=== PATIENT | male | born 1970 | race Caucasian/White ===

== ENCOUNTER 2017-07-24 12:52 | Emergency (ER) | payer OTHER ==
[~2017-07-24] VITALS: Ht 182.9 cm; Wt 99.8 kg
[~2017-07-24 12:52] MED LIST: CLONAZEPAM 1 MG1 M1 PO; ZOLOFT25 MG PO
[2017-07-24] MEDS ORDERED: ONDANSETRON HCL4 M2 PO (15:41)
[2017-07-24] MEDS ORDERED: KEFLEX500 M1 PO (15:41)
[2017-07-24] MEDS ORDERED: HYDROCODONE-AP1 EAC6 PO (15:41)
[2017-07-24 15:48] VITALS: BP 121/64
== END 2017-07-24 15:49 | disposition home or self-care (01) ==
LOC: ER 12:52
DX: S61.220A Laceration with foreign body of right index finger without damage to nail, initial encounter (principal); W45.8XXA Other foreign body or object entering through skin, initial encounter; Y93.89 Activity, other specified; Y92.89 Other specified places as the place of occurrence of the external cause; Y99.8 Other external cause status

== ENCOUNTER 2017-08-22 11:52 | Inpatient (IN) | payer OTHER ==
[~2017-08-22] VITALS: Ht 185.4 cm; Wt 105.0 kg
[2017-08-22] VITALS (7 sets, daily range): BP systolic 94–121; BP diastolic 55–77
--- NOTE | ~2017-08-22 | PATH ---
[facility] [place] [address] PATHOLOGY RPT PROCEDURE Name: MIKAL RDZ Room #: 211-P [facility] IN M.R.#: [id number] Admission: 08/22/17 Date of : 74 Discharge: 08/25/17 Report #: [id number] Path Case #: [id number] [facility] Accession Number: [id number] . 01 Material submitted: . PART A: BX DUODENUM R/O CELIAC AND UPPER GI CROHN'S PART B: BX GASTRITIS PART C: BX SMALL BOWEL R/O SMALL BOWEL CROHN'S PART D: BX ULCERATIONS AT CECUM TO HEPATIC FLEXURE PART E: BX RANDOM @ PROXIMAL TRANSVERSE COLON TO SPLENIC FLEXURE R/O CROHN' PART F: BX RANDOM AT DESCENDING COLON TO RECTUM R/O CROHN'S . 01 Clinical history: . Pre-OP DX: Anemia Post-OP DX: Ileitis, colitis . 02 Diagnosis: A. Small bowel mucosa, duodenum rule out celiac and upper GI Crohn's, endoscopic biopsy: - Mild active duodenitis. - Negative for granulomata. - Negative for villous blunting. . B. Gastric mucosa, gastritis, endoscopic biopsy: - Mild reactive gastropathy. - Negative for intestinal metaplasia or atrophy. - Negative for Helicobacter pylori (properly controlled immunohistochemical stain performed). . C. Small bowel mucosa, small bowel rule out small bowel Crohn's, endoscopic biopsy: - Mild active inflammation. - Negative for granulomata. . D. Large intestine, ulcerations at cecum to hepatic flexure, endoscopic biopsy: - Mild focal active colitis. - Negative for dysplasia or malignancy. . E. Large intestine, random at proximal transverse colon to splenic flexure, endoscopic biopsy: - Mild focal acute inflammation. - Negative for dysplastic or malignancy. . F. Large intestinal mucosa, random at descending colon to rectum, endoscopic biopsy: - Mild focal acute inflammation. - Negative for dysplasia or malignancy. [facility] [address] [place] [address] PATHOLOGY RPT PROCEDURE Name: MIKAL RDZ Room #: 211-P DIS IN M.R.#: [id number] Admission: 08/22/17 Date of : 74 Discharge: 08/25/17 Report #: [id number] Path Case #: [id number] LBQ/08/25/2017 . 02 Comment: Examination of the "duodenum" and "small bowel" biopsy tissue shows an increased cellularity of the lamina propria along with a scattered rare focus of surface epithelial inflammation. Occasional foci of cryptitis are present. There are no granulomata present. The biopsy tissues designated "ulcerations at cecum to hepatic flexure", "random at proximal transverse to splenic flexure", and "random at descending colon to rectum", show an occasional focus of cryptitis. The lamina propria cellularity is comprised of lymphocytes, abundant plasma cells as well as an occasional eosinophil. There are no granulomata, viral inclusions or crypt abscesses identified. Architectural abnormalities are not identified. Overall, findings may be suggestive of an acute self-limited colitis, an infectious-type of colitis, or an early inflammatory bowel disease such as Crohn's as well as medication induced colitis. Please correlate clinically and with endoscopic findings. (IUV:db; 08/25/2017) . 02 Electronically signed: . Reena Avitia MD, Pathologist NPI- [id number] . 01 Gross description: . A. Received in formalin labeled "Mikal Rdz, AUREA duodenum, rule out celiac," and additionally labeled on the requisition as "ant upper GI Crohn's," are 2 segments of parker soft tissue measuring 0.7 x 0.2 x 0.2 cm in aggregate dimensions and ranging from 0.3 to 0.4 cm in maximum dimension. The specimen is submitted entirely in cassette A1. . B. Received in formalin labeled "Mikal Rdz BX gastritis," is a single segment of parker soft tissue measuring 0.5 cm in maximum dimension. The specimen is entirely submitted in cassette B1. . C. Received in formalin labeled "Mikal Rdz, BX small bowel, rule out small bowel Crohn's," are 2 segments of parker soft tissue measuring 0.7 x 0.3 x 0.3 cm in aggregate dimensions and ranging from 0.2 to 0.5 cm in maximum dimension. The specimen is submitted entirely in cassette C1. . D. Received in formalin labeled "Mikal Rdz BX ulcerations at cecum to hepatic flexure," is a single segment of parker soft tissue measuring 0.5 cm in maximum dimension. The specimen is entirely submitted in cassette D1. . E. Received in formalin labeled "Mikal Rdz random BX proximal transverse colon to splenic flexure," are 2 segments of parker soft tissue measuring 0.6 x 0.2 x 0.2 cm in aggregate dimensions and ranging from 0.[address] [address] PATHOLOGY RPT PROCEDURE Name: MIKAL RDZ Room #: 211-P [facility] IN M.R.#: [id number] Admission: 08/22/17 Date of : 74 Discharge: 08/25/17 Report #: [id number] Path Case #: [id number] to 0.4 cm in maximum dimension. The specimen is submitted entirely in cassette E1. . F. Received in formalin labeled "Mikal Rdz, BX random descending colon to rectum, rule out Crohn's," are 2 segments of parker soft tissue measuring 0.6 x 0.2 x 0.2 cm in aggregate dimensions and measuring 0.3 cm each in maximum dimension. The specimen is submitted entirely in cassette F1. (TSD; 08/24/2017) TOB/TOB . 02 Pathologist provided ICD-10: K29.80, K31.9, K52.9, K62.89 . 02 CPT . 981716, 373563, 894981, 847061, 324323, 300405, B56078 Performed at: 01 [facility] [address], [place], [place] [id number] MD Meng Boggs MD Phone: [phone] Performed at: 02 [facility] [place] [address] [place], [place] [id number] MD Reena Avitia MD Phone: [phone]
--- NOTE | ~2017-08-22 | HC ---
[facility] [place] [address] CONSULTATION Name: KENDELLMIKAL Farheen Room #: 211-P [facility] IN ..#: [id number] Admission: 08/22/17 Attend Phys: Piotr Koch MD Discharge: Date of : 74 Report #: [id number] THIS REPORT FOR: //name// CC: Lluvia Koch SUBJECTIVE: The patient is a 46-year-old male who I have been asked to see for further evaluation of profound anemia. He presented with shortness of breath, heart racing and profound fatigue with a hemoglobin of 3.7. His medical history is otherwise notable for a finger laceration, rectal bleeding and hemorrhoidectomy. He had a colonoscopy done approximately 1 year ago, the results of which are not available to me, which showed possible Crohn's disease. Also, he has had partial colon resection for diverticulitis, complicated by ureteral stents and colostomy closure eventually. SOCIAL HISTORY: He smokes marijuana and cigarettes. Denies significant alcohol use. FAMILY HISTORY: Negative for inflammatory bowel disease or colon cancer. REVIEW OF SYSTEMS: Positive for weakness and fatigue. He denies head, eyes, ears, nose or throat complaints. Denies chest pain, chest palpitation, chest pressure, cough, shortness of breath, wheezing, genitourinary, musculoskeletal or neuropsychiatric complaints beyond that mentioned above. PHYSICAL EXAMINATION: VITAL SIGNS: Afebrile, vital signs stable. HEENT: Nonicteric. NECK: No JVD, thyromegaly or bruits. CARDIOVASCULAR: Regular. LUNGS: Clear. ABDOMEN: Soft, nondistended, nontender, normoactive bowel sounds. No hepatosplenomegaly. No stigmata of chronic liver disease. No abnormal masses or bruits. EXTREMITIES: No clubbing, cyanosis or edema. NEUROLOGIC: Grossly intact. RECTAL: Deferred, but he does claim that he has had rectal pain since his examination in the ER yesterday. PERTINENT LABORATORY DATA: Include hemoglobin 3.7, up to 6.7 now after transfusion. MCV 70, RDW 29, platelet count 207 and white count 4.5. Chemistry notable for BUN 12, creatinine 1.0. Normal liver tests. CT suggesting some fluid or low density stool in the rectum without significant rectal distention or rectal mural thickening. No evidence for colonic obstruction. No colonic mural thickening or pericolonic inflammatory changes identified. No obvious obstruction. [address] [address] CONSULTATION Name: MIKAL RDZ Room #: 211-P [facility] IN .R.#: [id number] Admission: 08/22/17 Attend Phys: Piotr Koch MD Discharge: Date of : 74 Report #: [id number] ASSESSMENT: In summary, the patient has possible Crohn's disease with a profound microcytic anemia and iron deficiency as well as rectal bleeding and rectal pain. We will set him up for colonoscopy. We will also include an upper endoscopy to further stage his disease. He may require additional testing based on those findings. I appreciate the opportunity to participate in his care. We will plan on transfusing him up to a hemoglobin of around 8. By: [id number] Camden Valdes MD /nt
--- NOTE | ~2017-08-22 | EKG ---
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
[~2017-08-22 11:52] MED LIST changes: +HYDROCODONE-AP1 EAC6 PO; +KEFLEX500 M1 PO; +ONDANSETRON HCL4 M2 PO
[2017-08-22 13:31] LABS: ANION GAP 10 mmol/L (7-16); BUN 12 mg/dL (7-18); CALCIUM 7.8 mg/dL (8.5-10.1); CHLORIDE 103 mmol/L (98-107); CO2 22 mmol/L (21-32); GLUCOSE 104 mg/dL (74-106); POTASSIUM 3.5 mmol/L (3.5-5.1); SODIUM 135 mmol/L (136-145)
[2017-08-22 13:34] LABS: WBC 4.2 thou/uL (4.0-11.0)
[2017-08-22 13:36] LABS: MCH 17.6 pg (26.0-34.0); PLATELET COUNT 251 thou/uL (150-400); RDW 28.8 % (10.5-14.5)
[2017-08-22 13:39] LABS: ALBUMIN 3.7 g/dL (3.4-5.0); DIRECT BILIRUBIN < 0.1 mg/dL (<0.1-0.3); HEMOGLOBIN 3.7 gm/dL (14.0-18.0); SGOT 23 U/L (15-37); SGPT 19 U/L (30-65); TOTAL BILIRUBIN 0.4 mg/dL (<0.1-1.0); TOTAL PROTEIN 6.9 g/dL (6.4-8.2); TROPONIN-I < 0.04 ng/mL (<0.06)
[2017-08-22 13:40] LABS: HEMATOCRIT 13.2 % (42.0-52.0)
[2017-08-22 14:09] LABS: ABSOLUTE NEUTROPHILS 2.6 thou/uL (1.4-8.2); HYPOCHROMASIA 3+
[2017-08-22 14:10] LABS: ANISOCYTOSIS 3+; MICROCYTES 3+; OVALOCYTES FEW; TARGET CELLS FEW; TEARDROPS FEW
[2017-08-22 21:43] LABS: HEMATOCRIT 16.8 % (42.0-52.0); HEMOGLOBIN 5.1 gm/dL (14.0-18.0)
[2017-08-23] VITALS (8 sets, daily range): BP systolic 94–130; BP diastolic 52–88
[2017-08-23 04:16] LABS: WBC 4.5 thou/uL (4.0-11.0)
[2017-08-23 04:18] LABS: MCH 21.8 pg (26.0-34.0); MCHC 31.1 g/dL (28.0-37.0); RBC 2.72 mil/uL (4.50-6.00)
[2017-08-23 04:20] LABS: CALCIUM 8.3 mg/dL (8.5-10.1); MCV 70.2 fL (80.0-100.0); POTASSIUM 3.5 mmol/L (3.5-5.1)
[2017-08-23 04:21] LABS: HEMOGLOBIN 5.9 gm/dL (14.0-18.0)
[2017-08-23 04:22] LABS: HEMATOCRIT 19.1 % (42.0-52.0)
[2017-08-23 09:10] LABS: HEMATOCRIT 21.6 % (42.0-52.0); HEMOGLOBIN 6.7 gm/dL (14.0-18.0)
[2017-08-23 15:23] LABS: HEMOGLOBIN 8.1 gm/dL (14.0-18.0)
[2017-08-23 20:00] LABS: HEMATOCRIT 25.9 % (42.0-52.0); HEMOGLOBIN 8.6 gm/dL (14.0-18.0)
[2017-08-24 00:18] VITALS: BP 130/85
[2017-08-24 03:53] VITALS: BP 127/82
[2017-08-24 07:16] VITALS: BP 120/74
[2017-08-24 12:36] VITALS: BP 113/77
[2017-08-24 14:29] LABS: HEMATOCRIT 27.5 % (42.0-52.0); HEMOGLOBIN 8.7 gm/dL (14.0-18.0)
[2017-08-24 15:23] VITALS: BP 126/87
[2017-08-24 19:17] VITALS: BP 127/90
[2017-08-25 06:11] VITALS: BP 116/77
[2017-08-25 06:35] LABS: HEMOGLOBIN 8.9 gm/dL (14.0-18.0)
[2017-08-25 06:46] LABS: HEMATOCRIT 27.4 % (42.0-52.0); MCH 24.1 pg (26.0-34.0); MCHC 32.4 g/dL (28.0-37.0); MCV 74.5 fL (80.0-100.0); PLATELET COUNT 175 thou/uL (150-400); RBC 3.68 mil/uL (4.50-6.00); RDW 25.5 % (10.5-14.5); WBC 5.2 thou/uL (4.0-11.0)
[2017-08-25 06:49] LABS: ALBUMIN 3.4 g/dL (3.4-5.0); CALCIUM 8.5 mg/dL (8.5-10.1); POTASSIUM 3.5 mmol/L (3.5-5.1); TOTAL BILIRUBIN 0.6 mg/dL (<0.1-1.0); TOTAL PROTEIN 6.4 g/dL (6.4-8.2)
[2017-08-25 07:57] LABS: ABSOLUTE NEUTROPHILS 3.5 thou/uL (1.4-8.2)
[2017-08-25 07:58] LABS: ANISOCYTOSIS 2+; MICROCYTES 2+; PLATELET ESTIMATE NORMAL; POLYCHROMASIA 1+
[2017-08-25 07:59] LABS: OVALOCYTES FEW
[2017-08-25 08:01] LABS: SCHISTOCYTES FEW
[2017-08-25 08:02] LABS: TEARDROPS FEW
[2017-08-25 11:26] VITALS: BP 137/71
[2017-08-25 15:11] VITALS: BP 126/81
[2017-08-25] MEDS ORDERED: ANALPRAM HC 2.530 GM TOP (15:18)
[2017-08-25] MEDS ORDERED: PREDNISONE 20 M20 M1 PO (15:18)
[2017-08-25] MEDS ORDERED: ACETAMINOPHEN325 M1 PO (15:18)
[2017-08-25] MEDS ORDERED: PANTOPRAZOLE SO40 M1 PO (15:18)
[2017-08-25 15:32] VITALS: BP 126/81
== END 2017-08-25 15:39 | disposition home or self-care (01) | DRG 385 ==
LOC: ER 11:52 → EROBS 14:18 → 2N 14:18
PROVIDERS: Emergency Medicine; Hospitalist; Nurse Practitioner Acute Care
DX: K50.80 Crohn's disease of both small and large intestine without complications (principal); K29.71 Gastritis, unspecified, with bleeding; K57.31 Diverticulosis of large intestine without perforation or abscess with bleeding; K63.3 Ulcer of intestine; D64.9 Anemia, unspecified; F41.9 Anxiety disorder, unspecified; K44.9 Diaphragmatic hernia without obstruction or gangrene; F12.10 Cannabis abuse, uncomplicated; K21.0 Gastro-esophageal reflux disease with esophagitis; K52.9 Noninfective gastroenteritis and colitis, unspecified; K12.0 Recurrent oral aphthae; K63.89 Other specified diseases of intestine; K64.4 Residual hemorrhoidal skin tags; K64.8 Other hemorrhoids; Z87.891 Personal history of nicotine dependence; Z98.890 Other specified postprocedural states; Z79.2 Long term (current) use of antibiotics; Z79.899 Other long term (current) drug therapy
CPT/HCPCS: 10081; 62110; 62900

== ENCOUNTER 2020-07-27 02:56 | Emergency (ER) | payer OTHER ==
[~2020-07-27] VITALS: Ht 185.4 cm; Wt 90.7 kg
[~2020-07-27 02:56] MED LIST changes: +ACETAMINOPHEN325 M1 PO; +ANALPRAM HC 2.530 GM TOP; +PANTOPRAZOLE SO40 M1 PO; +PREDNISONE 20 M20 M1 PO
[2020-07-27 03:26] LABS: ABSOLUTE NEUTROPHILS 8.2 thou/uL (1.4-8.2); BASOPHILS 0.6 % (0.0-2.0); EOSINOPHILS 2.2 % (0.0-3.0); HEMATOCRIT 37.3 % (42.0-52.0); LYMPHOCYTES 20.4 % (24.0-44.0); MCH 25.9 pg (26.0-34.0); MCHC 32.2 g/dL (28.0-37.0); MCV 80.5 fL (80.0-100.0); MONOCYTES 7.3 % (1.0-8.0); PLATELET COUNT 259 thou/uL (150-400); POLYS 69.5 % (36.0-66.0); RBC 4.63 mil/uL (4.50-6.00); RDW 16.8 % (10.5-14.5); WBC 11.8 thou/uL (4.0-11.0)
[2020-07-27 03:29] LABS: CALCIUM 8.7 mg/dL (8.5-10.1); POTASSIUM 3.6 mmol/L (3.5-5.1)
[2020-07-27 03:35] LABS: ALBUMIN 3.5 g/dL (3.4-5.0); TOTAL BILIRUBIN 0.3 mg/dL (0.2-1.0); TOTAL PROTEIN 7.1 g/dL (6.4-8.2)
[2020-07-27] MEDS ORDERED: PROAIR HFA8.5 GM INH (04:01)
[2020-07-27 04:17] VITALS: BP 132/76
== END 2020-07-27 04:39 | disposition home or self-care (01) ==
LOC: ER 02:56
PROVIDERS: Emergency Medicine
DX: J40 Bronchitis, not specified as acute or chronic (principal); Z90.89 Acquired absence of other organs

== ENCOUNTER 2021-03-04 09:08 | Emergency (ER) | payer OTHER ==
[~2021-03-04] VITALS: Ht 185.4 cm; Wt 95.3 kg
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
[~2021-03-04 09:08] MED LIST changes: +PROAIR HFA8.5 GM INH
[2021-03-04 10:40] LABS: ABSOLUTE NEUTROPHILS 3.2 thou/uL (1.4-8.2); BASOPHILS 1.5 % (0.0-2.0); EOSINOPHILS 3.9 % (0.0-3.0); HEMATOCRIT 38.1 % (42.0-52.0); HEMOGLOBIN 12.3 gm/dL (14.0-18.0); MCH 27.3 pg (26.0-34.0); MCHC 32.2 g/dL (28.0-37.0); MONOCYTES 8.8 % (1.0-8.0); PLATELET COUNT 289 thou/uL (150-400); POLYS 58.8 % (36.0-66.0); RBC 4.48 mil/uL (4.50-6.00); RDW 17.6 % (10.5-14.5); WBC 5.5 thou/uL (4.0-11.0)
[2021-03-04 10:50] LABS: CALCIUM 8.9 mg/dL (8.5-10.1); CREATININE 0.9 mg/dL (0.7-1.3); POTASSIUM 4.6 mmol/L (3.5-5.1)
[2021-03-04 10:57] LABS: ALBUMIN 3.3 g/dL (3.4-5.0); TOTAL BILIRUBIN 0.2 mg/dL (0.2-1.0); TOTAL PROTEIN 6.4 g/dL (6.4-8.2)
[2021-03-04] MEDS ORDERED: NORCO5 PO (12:57)
[2021-03-04 13:08] VITALS: BP 112/78
== END 2021-03-04 13:08 | disposition home or self-care (01) ==
LOC: ER 09:08
PROVIDERS: Emergency Medicine
DX: S16.1XXA Strain of muscle, fascia and tendon at neck level, initial encounter (principal); S46.912A Strain of unspecified muscle, fascia and tendon at shoulder and upper arm level, left arm, initial encounter; M54.50 Low back pain, unspecified; F41.9 Anxiety disorder, unspecified; F12.90 Cannabis use, unspecified, uncomplicated; F17.200 Nicotine dependence, unspecified, uncomplicated; Z90.89 Acquired absence of other organs; Z79.51 Long term (current) use of inhaled steroids; Z79.899 Other long term (current) drug therapy; V49.00XA Driver injured in collision with unspecified motor vehicles in nontraffic accident, initial encounter; Y93.89 Activity, other specified; Y92.89 Other specified places as the place of occurrence of the external cause; Y99.8 Other external cause status